=== PATIENT | female | born 1985 | race African-American/Black ===

== ENCOUNTER 2020-12-10 23:14 | Emergency (ER) | payer OTHER | END 2020-12-11 01:40 | disposition home or self-care (01) | LOC: CSHERS 23:14 | DX: M24.9 Joint derangement, unspecified (principal); G43.909 Migraine, unspecified, not intractable, without status migrainosus; F17.200 Nicotine dependence, unspecified, uncomplicated; Z79.899 Other long term (current) drug therapy | CPT/HCPCS: 99283 ==